=== PATIENT | female | born 1940 | race African-American/Black ===

== ENCOUNTER 2017-09-14 06:13 | Day surgery (SDC) | payer OTHER, BC ==
[2017-09-11 09:02] VITALS: BMI 31.0
[~2017-09-14 06:13] MED LIST: TOBRA 0.3%/DEXAMETH 0.1% OPHTHALMIC SUSP 2.5 ML BTL TP ONE
[2017-09-14 06:36] VITALS: TEMP 97.3
[2017-09-14] MEDS: CYCLOPENTOLATE HCL 1% OPHTH SOLN 2 ML BOTTLE ONE ×3 (06:54→07:13)
[2017-09-14] MEDS: PHENYLEPHRINE 2.5% OPHTH SOLN 15 ML BOTTLE ONE ×3 (06:55→07:14)
[2017-09-14] MEDS: FLURBIPROFEN 0.03% OPHTH SOLN 2.5 ML BOTTLE ONE ×3 (06:55→07:13)
[2017-09-14] MEDS: TROPICAMIDE 1% OPHTH SOLN 15 ML BOTTLE ONE ×3 (06:55→07:14)
[2017-09-14] MEDS: MOXIFLOXACIN HCL 0.5% OPHTHALMIC 3 ML BOTTLE ONE ×3 (06:55→07:13)
[2017-09-14] MEDS ORDERED: PHENYLEPHRINE/KETOROLAC 4 ML VIAL IO ONE ×2 (07:30→08:49)
[2017-09-14] MEDS ORDERED: BSS (NA/CA/MG/K) BALANCED SALT SOLUTION OPHTH SOLN 15 ML BOTTLE ONE (07:38)
[2017-09-14] MEDS ORDERED: LIDOCAINE HCL/PF 1% SDV 5ML VIAL ONE (07:38)
[2017-09-14] MEDS ORDERED: TETRACAINE 0.5% OPHTH SOLN 2 ML BOTTLE ONE (07:38)
[2017-09-14] MEDS ORDERED: TOBRA 0.3%/DEXAMETH 0.1% OPHTHALMIC SUSP 2.5 ML BTL ONE (07:38)
[2017-09-14] MEDS ORDERED: POVIDONE-IODINE 5% OPHTHALMIC PREP 30 ML SOLUTION ONE (07:39)
[2017-09-14] MEDS ORDERED: MIDAZOLAM HCL 2 MG/2 ML SINGLE DOSE VIAL ONE (08:09)
[2017-09-14] MEDS ORDERED: TETRACAINE 0.5% OPHTH SOLN 2 ML BOTTLE OD ONE (08:22)
[2017-09-14] MEDS ORDERED: POVIDONE-IODINE 5% OPHTHALMIC PREP 30 ML SOLUTION OD ONE (08:27)
[2017-09-14] MEDS ORDERED: BSS (NA/CA/MG/K) BALANCED SALT SOLUTION OPHTH SOLN 15 ML BOTTLE OD ONE (08:36)
[2017-09-14] MEDS ORDERED: LIDOCAINE HCL 1% PRESERVATIVE FREE - 30ML VIAL IO ONE (08:36)
[2017-09-14] MEDS ORDERED: CHONDROITIN SU A/HYALUR SOD 1 KIT IO ONE (08:36)
[2017-09-14] MEDS ORDERED: TOBRA 0.3%/DEXAMETH 0.1% OPHTHALMIC SUSP 2.5 ML BTL TP ONE (09:00)
[2017-09-14 11:21] VITALS: BP 136/74; PULSE 58
--- NOTE | 2017-09-14 18:57 | OP ---
DATE OF OPERATION: 09/14/2017 SPECIALIST: Ida Lopez MD ANESTHESIA: Local. PROCEDURE: Phacoemulsification of cataract, right eye, with in-bag placement of SN60WF 22.5 diopter using . DIAGNOSIS: Cataract, right eye. POSTOPERATIVE DIAGNOSIS: Cataract, right eye. DESCRIPTION OF PROCEDURE: Patient was brought in the operating room, and the right eye was prepped and draped in the usual sterile fashion for ophthalmic surgery after placing tetracaine eye drops. The microscope was swung into position. A 2.75 keratome was used to enter the anterior chamber at approximately 10 o'clock position. Filling the anterior chamber with 0.5 mL of preservative-free lidocaine and viscoelastic with an accessory port made at approximately 2 o'clock position. The cystotome and Utrata forceps were used to make a continuous circular capsulorrhexis. Phacoemulsification was carried out in a [id number] technique after using IA to perform hydrodissection and hydrodelineation of the lens nucleus which was then rotated freely. IA was used to remove residual cortical material from the capsular bag which was then found to be intact, and into which was injected SN60WF 22.5-diopter IOL. IA was used to remove residual viscoelastic from the capsular bag and anterior chamber. BSS was used to hydrate the corneal lip wounds which were then found to be watertight. A contact lens soaked in TobraDex solution for approximately 10 minutes was then draped in the cornea. The eye was patched and shielded. The patient was transferred to recovery room in a stable condition, having tolerated the procedure well. Chanell [id number]
== END 2017-09-14 11:05 | disposition home or self-care (01) ==
LOC: JASU-SURG 06:13
PROVIDERS: ATTEND Ophthalmology
PROC: 08RJ3JZ Replacement of Right Lens with Synthetic Substitute, Percutaneous Approach (ICD-10-PCS; principal; 2017-09-14 08:00)
DX: H26.9 Unspecified cataract (principal)
CPT/HCPCS: 82962; C9447

== ENCOUNTER 2017-12-28 06:46 | Day surgery (SDC) | payer OTHER, BC ==
[2017-12-24 18:22] VITALS: BMI 31.9
[~2017-12-28 06:46] MED LIST changes: +BSS (NA/CA/MG/K) BALANCED SALT SOLUTION OPHTH SOLN 15 ML BOTTLE IO ONE; +CHONDROITIN SU A/HYALUR SOD 1 KIT IO ONE; +LIDOCAINE HCL 1% PRESERVATIVE FREE - 30ML VIAL IO ONE; +POVIDONE-IODINE 5% OPHTHALMIC PREP 30 ML SOLUTION OS ONE; +TETRACAINE 0.5% OPHTH SOLN 2 ML BOTTLE TP ONE; +TOBRA 0.3%/DEXAMETH 0.1% OPHTHALMIC SUSP 2.5 ML BTL OP ONE; -TOBRA 0.3%/DEXAMETH 0.1% OPHTHALMIC SUSP 2.5 ML BTL TP ONE
[2017-12-28 07:28] VITALS: TEMP 97.9
[2017-12-28] MEDS ORDERED: TOBRA 0.3%/DEXAMETH 0.1% OPHTHALMIC SUSP 2.5 ML BTL ONE (07:36)
[2017-12-28] MEDS ORDERED: LIDOCAINE HCL/PF 1% SDV 5ML VIAL ONE (07:37)
[2017-12-28] MEDS ORDERED: TETRACAINE 0.5% OPHTH SOLN 2 ML BOTTLE ONE (07:37)
[2017-12-28] MEDS ORDERED: BSS (NA/CA/MG/K) BALANCED SALT SOLUTION OPHTH SOLN 15 ML BOTTLE ONE (07:37)
[2017-12-28] MEDS ORDERED: POVIDONE-IODINE 5% OPHTHALMIC PREP 30 ML SOLUTION ONE (07:37)
[2017-12-28] MEDS ORDERED: EPINEPHrine/PF 1 MG/1 ML (1:1,000) AMPULE ONE (07:43)
[2017-12-28] MEDS ORDERED: CHONDROITIN SU A/HYALUR SOD 1 KIT ONE (07:43)
[2017-12-28] MEDS: PHENYLEPHRINE 2.5% OPHTH SOLN 15 ML BOTTLE ONE ×3 (07:50→08:13)
[2017-12-28] MEDS: MOXIFLOXACIN HCL 0.5% OPHTHALMIC 3 ML BOTTLE ONE ×3 (07:50→08:13)
[2017-12-28] MEDS: FLURBIPROFEN 0.03% OPHTH SOLN 2.5 ML BOTTLE ONE ×3 (07:50→08:13)
[2017-12-28] MEDS: CYCLOPENTOLATE HCL 1% OPHTH SOLN 2 ML BOTTLE ONE ×3 (07:50→08:13)
[2017-12-28] MEDS: TROPICAMIDE 1% OPHTH SOLN 15 ML BOTTLE ONE ×3 (07:50→08:13)
[2017-12-28] MEDS ORDERED: MIDAZOLAM HCL 2 MG/2 ML SINGLE DOSE VIAL ONE (08:57)
[2017-12-28] MEDS ORDERED: TETRACAINE 0.5% OPHTH SOLN 2 ML BOTTLE TP ONE (09:35)
[2017-12-28] MEDS ORDERED: POVIDONE-IODINE 5% OPHTHALMIC PREP 30 ML SOLUTION OS ONE (09:50)
[2017-12-28] MEDS ORDERED: BSS (NA/CA/MG/K) BALANCED SALT SOLUTION OPHTH SOLN 15 ML BOTTLE IO ONE (09:54)
[2017-12-28] MEDS ORDERED: CYCLOPENTOLATE HCL 1% OPHTH SOLN 2 ML BOTTLE OS ONE (09:58)
[2017-12-28] MEDS ORDERED: PHENYLEPHRINE 2.5% OPHTH SOLN 15 ML BOTTLE OS ONE (09:58)
[2017-12-28] MEDS ORDERED: TROPICAMIDE 1% OPHTH SOLN 15 ML BOTTLE OS ONE (09:58)
[2017-12-28] MEDS ORDERED: LIDOCAINE HCL 1% PRESERVATIVE FREE - 30ML VIAL IO ONE (10:03)
[2017-12-28] MEDS ORDERED: CHONDROITIN SU A/HYALUR SOD 1 KIT IO ONE (10:05)
[2017-12-28] MEDS ORDERED: TOBRA 0.3%/DEXAMETH 0.1% OPHTHALMIC SUSP 2.5 ML BTL OP ONE (10:29)
[2017-12-28 11:25] VITALS: BP 129/75; PULSE 68
--- NOTE | 2017-12-28 13:47 | OP ---
DATE OF OPERATION: 12/28/2017 SURGEON: Vance Hendrickson MD PREOPERATIVE DIAGNOSIS: Cataract, left eye. POSTOPERATIVE DIAGNOSIS: Cataract, left eye. PROCEDURE: Phacoemulsification of cataract left eye with in bag placement of SN60WF in a myotic pupil. ANESTHESIA: Local. DESCRIPTION OF PROCEDURE: The patient was brought to the operating room, and the left eye was prepped and draped in the usual sterile fashion for ophthalmic surgery after placing tetracaine eye drops. The microscope was swung into position, and a 2.75 keratome was used to enter the anterior chamber at approximately 2 o'clock position with an accessory port made at approximately the 4 o'clock position. The pupil was very myotic; hence, the pledget was placed on the conjunctival sac. Viscoat dilation was also performed after placing 0.5 mL of lidocaine preservative free in the anterior chamber. Viscoelastic was filled in the anterior chamber, and cystotome and Utrata forceps were used to make a continuous circular capsulorrhexis. The lens was then hyrodissected and hydrodelineated using BSS. The nucleus was rotated freely. Phacoemulsification was carried out in a ktpryu-etf-nixltwo technique. The capsular bag was found to be intact after IOL was used to remove the residual cortical material from the capsular bag, which was placed 22 diopter SN60WF. The IOL was found to be in situation, and viscoelastic was aspirated. The corneal lip wounds were then hydrated, and the wound was found to be watertight. The contact lens soaked in Tobradex solution for approximately 10 minutes was then draped on the eye. The eye was patched and shielded. The patient was transferred to the recovery room in a stable condition having tolerated the procedure well. VANCE HENDRICKSON M.D. [id number]
== END 2017-12-28 11:25 | disposition home or self-care (01) ==
LOC: JASU-SURG 06:46
PROVIDERS: ATTEND Ophthalmology
PROC: 08RK3JZ Replacement of Left Lens with Synthetic Substitute, Percutaneous Approach (ICD-10-PCS; principal; 2017-12-28 09:00)
DX: H26.9 Unspecified cataract (principal)
CPT/HCPCS: 82962

== ENCOUNTER 2020-04-19 21:15 | Emergency (ER) | payer OTHER, BC ==
[2020-04-19 22:00] VITALS: BP 175/78; PULSE 97; TEMP 98.6; BMI 31.6
--- NOTE | 2020-04-19 22:27 | PDOC ---
History of Present Illness - General Chief Complaint: Sore Throat Stated Complaint: SORE THROAT Time Seen by Provider: 04/19/20 22:18 History Source: Patient Exam Limitations: No Limitations - History of Present Illness Initial Comments: 04/19/20 22:28 80-year-old female past medical history hypertension diabetes left leg stent presented to the ED with sore throat. Patient states she was eating dinner felt a choking sensation was able to swallow and then experience sore throat afterwards. Patient denies foreign body sensation in throat. Patient came to the ED because she was concerned about the episode. Patient is currently asymptomatic in the ED and was able to tolerate p.o. fluids were given a glass of water. Patient is also complaining of left arm swelling in the AC fossa for 2 days with mild pain on ROM. Pt otherwise denies: fevers, chills, syncope, lightheadedness, dizziness, headaches, neck pain, chest pain, shortness of breath, palpitations, back pain, abdominal pain, nausea, vomiting, diarrhea, constipation. Past History - Medical History Allergies/Adverse Reactions: Allergies Allergy/AdvReac Type Severity Reaction Status Date / Time No Known Drug Allergies Allergy Verified 12/28/17 07:33 Home Medications: Ambulatory Orders Alprazolam [Xanax] 0.5 mg PO PRN PRN 09/11/17 Amlodipine Besylate 10 mg PO DAILY 09/11/17 Atorvastatin Ca [Lipitor] 10 mg PO HS 09/11/17 Gabapentin [Gralise] 300 mg PO HS 09/11/17 Glipizide [Glipizide ER] 5 mg PO DAILY 09/11/17 Metoprolol Succinate 50 mg PO DAILY 09/11/17 Ramipril 10 mg PO DAILY 09/11/17 Aspirin Coated [Ecotrin -] 81 mg PO DAILY 12/28/17 Anemia: No Asthma: No Cancer: No Cardiac Disorders: No CVA: No COPD: No CHF: No Dementia: No Diabetes: Yes GI Disorders: No Disorders: No HTN: Yes Hypercholesterolemia: No Liver Disease: No Seizures: No Thyroid Disease: No - Surgical History Abdominal Surgery: No Appendectomy: No Cardiac Surgery: No Cholecystectomy: No Lung Surgery: No Neurologic Surgery: No Orthopedic Surgery: No - Psycho-Social/Smoking History Smoking History: Never smoked Have you smoked in the past 12 months: No If you are a former smoker, when did you quit?: 2010 - Substance Abuse Hx (Audit-C & DAST Scrn) How often the patient has a drink containing alcohol: Never Score: In Men: 4 or > Positive; In Women: 3 or > Positive: 0 Screen Result (Pos requires Nsg. Audit-10AR): Negative In the last yr the pt used illegal drug/Rx for NonMed reason: No Score: Yes response is considered Positive: 0 Screen Result (Positive result requires Nsg. DAST-10): Negative *Physical Exam - Vital Signs Last Vital Signs Temp Pulse Resp BP Pulse Ox 98.6 F 97 H 19 175/78 H 97 04/19/20 21:48 04/19/20 21:48 04/19/20 21:48 04/19/20 21:48 04/19/20 21:48 - Physical Exam 04/19/20 22:29 Gen: AAOx 3, no acute distress, comfortable, no signs of respiratory distress HENT: atraumatic, normocephalic with no laceration or contusion. Nasal mucosa without erythema. Oropharynx without erythema or exudates. Mucous membranes moist. EYES: PERRL, EOM intact, conjunctiva pink NECK: supple; trachea midline; no JVD, no lymphadenopathy, or thyromegaly CV: RRR no murmurs, gallops, or rubs. CHEST: CTA b/l no wheezing, rales or rhonchi ABD: +BS/ND. no TTP; soft, no rebound, no guarding EXTREMITY: no cyanosis or erythema. 2+ dorsalis pedis, posterior tibial, and radial pulse. No pedal edema; no calf swelling or tenderness SKIN: no rash, warm and dry, no diaphoresis HEME: no purpura or ecchymosis NEURO: normal speech, CN II-XII intact, sensation intact, normal gait, no cerebellar deficits MS: 5/5 strength in all extremities, FROM intact in all extremities. Right upper extremity: Mild swelling to the medial aspect of the forearm at the area of the AC fossa no erythema or increased warmth from 2+ radial pulse sensation intact less than 2-second cap refill Medical Decision Making - Medical Decision Making 04/19/20 22:32 80-year-old female complaining of sore throat left arm swelling Vital signs stable except for asymptomatic hypertension No acute intervention warranted in the ED for sore throat complaint Had a shared decision-making conversation with patient I explained that I would like to get an upper extremity arm Doppler study to rule out DVT in the upper extremity. I explained to the patient the risk versus benefits. Patient states that due to it being 10:30 at night she rather follow-up with her PCP tomorrow to have it done rather than wait for the results here tonight. I explained the risks of this to the patient patient agrees and understands and will follow up with her PCP tomorrow Repeat HR 80 Pt appears well and is safe and stable for discharge with strict return precautions including signs and symptoms requring immediate return to the ED Supportive care instructions explained and given to pt. Reasons to return emergently to ER explained and given. Importance of follow up with PMD and other specialists as indicated stressed to pt. Pt verbalized understanding of instructions. Pt to follow up with PMD in 2 days. 04/19/20 22:37 Discharge - Discharge Information Problems reviewed: Yes Clinical Impression/Diagnosis: Sore throat and laryngitis Condition: Stable Disposition: HOME - Follow up/Referral Referrals: Kaleigh Galvin MD [Primary Care Provider] - - Patient Discharge Instructions Patient Printed Discharge Instructions: DI for Viral Pharyngitis Additional Instructions: PLEASE FOLLOW UP WITH YOUR DOCTOR TOMORROW - Post Discharge Activity
== END 2020-04-19 22:43 | disposition home or self-care (01) ==
LOC: JER 21:15 → JERFT 21:15
DX: J02.9 Acute pharyngitis, unspecified (principal)
CPT/HCPCS: 99282-25

== ENCOUNTER 2020-05-20 09:58 | Emergency (ER) | payer OTHER, BC ==
[2020-05-20 10:03] VITALS: TEMP 97; BMI 31.6
--- OUTSIDE RECORDS SUMMARY | 2020-05-20 10:11 | XMS ---
:1940 Author Organization [facility] Support Name Relationship Address Phone RE Unavailable Unavailable Unavailable STEPHANIE BURLESON [address] [place] [address] SARAH BETH Spouse [address] [phone] [place] [address] Re-disclosure Warning The records that you are about to access may contain information from federally- assisted alcohol or drug abuse programs. If such information is present, then the following federally mandated warning applies: This information has been disclosed to you from records protected by federal confidentiality rules (42 CFR part 2). The federal rules prohibit you from making any further disclosure of this information unless further disclosure is expressly permitted by the written consent of the person to whom it pertains or as otherwise permitted by 42 CFR part 2. A general authorization for the release of medical or other information is NOT sufficient for this purpose. The Federal rules restrict any use of the information to criminally investigate or prosecute any alcohol or drug abuse patient.The records that you are about to access may contain highly sensitive health information, the redisclosure of which is protected by Article 27-F of the [facility] Public Health law. If you continue you may haveaccess to information: Regarding HIV / AIDS; Provided by facilities licensed or operated by the [facility] Office of Mental Health; or Provided by the [facility] Office for People With Developmental Disabilities. If such information is present, then the following [facility] mandated warning applies: This information has been disclosed to you from confidential records which are protected by state law. State law prohibits you from making any further disclosure of this information without the specific written consent of the person to whom it pertains, or as otherwise permitted by law. Any unauthorized further disclosure in violation of state law may result in a fine or half-way sentence or both. A general authorization for the release of medical or other information is NOT sufficient authorization for further disclosure. Insurance Providers Payer name Policy type Policy ID Covered Covered green party's Policy P mickey / Coverage green party ID relationship to Marlow Inf ormation type marlow MEDICARE [id number] SP [id number] [facility] [id number] MEDICARE [id number]
--- NOTE | 2020-05-20 10:15 | PDOC ---
History of Present Illness - History of Present Illness Initial Comments: 05/20/20 10:38 80 F with HTN, NIDDM, left leg stent presented here for acute headache. Headache was sharp, and throbbing in nature, located in right frontal side radiate to the right occipital. It woke her up from sleep, and associated with right tinnitus. Yesterday, patient had pizza at night. Shortly after, she had one episode of NBNB emesis. Denied Diarrhea, chest pain, abdominal pain, change of vision, ataxia, trauma, falling. Her PCP was called, told her to come into the ED for COVID testing. PMHX: as in HPI PSHX: see below Meds: home meds , on aspirinr 81 mg. Allergies: none Tob:none Etoh: none Rec drugs:none PCP: danuta GONZALEZ GENERAL/CONSTITUTIONAL: No fever or chills. No weakness. HEAD, EYES, EARS, NOSE AND THROAT: No change in vision. No ear pain or discharge. No sore throat. CARDIOVASCULAR: No chest pain or shortness of breath RESPIRATORY: No cough, wheezing, or hemoptysis. GASTROINTESTINAL: No nausea, vomiting, diarrhea or constipation. GENITOURINARY: No dysuria, frequency, or change in urination. MUSCULOSKELETAL: No joint or muscle swelling or pain. No neck or back pain. SKIN: No rash NEUROLOGIC: + headache, no vertigo, loss of consciousness, or change in strength/sensation. ENDOCRINE: No increased thirst. No abnormal weight change HEMATOLOGIC/LYMPHATIC: No anemia, easy bleeding, or history of blood clots. ALLERGIC/IMMUNOLOGIC: No hives or skin allergy. PE HTN 180/100s. GENERAL: Awake, alert, and fully oriented, in no acute distress HEAD: No signs of trauma, normocephalic, atraumatic EYES: PERRLA, EOMI, sclera anicteric, conjunctiva clear ENT: Auricles normal inspection, hearing grossly normal, nares patent, oropharynx clear without exudates. Moist mucosa NECK: Normal ROM, supple, no lymphadenopathy, JVD, or masses LUNGS: No distress, speaks full sentences, clear to auscultation bilaterally HEART: Regular rate and rhythm, normal S1 and S2, no murmurs, rubs or gallops, peripheral pulses normal and equal bilaterally. ABDOMEN: Soft, nontender, normoactive bowel sounds. No guarding, no rebound. No masses EXTREMITIES : Normal inspection, Normal range of motion, no edema. No clubbing or cyanosis. NEUROLOGICAL: Cranial nerves II through XII grossly intact. Normal speech, normal gait, no focal sensorimotor deficits SKIN: Warm, Dry, normal turgor, no rashes or lesions noted <Andre Basilio - Last Filed: 05/20/20 11:45> <Libertad Wyatt - Last Filed: 05/20/20 12:02> - General Chief Complaint: Headache Stated Complaint: HEADACHE Time Seen by Provider: 05/20/20 10:13 Past History - Medical History Anemia: No Asthma: No Cancer: No Cardiac Disorders: No CVA: No COPD: No CHF: No Dementia: No Diabetes: Yes GI Disorders: No Disorders: No HTN: Yes Hypercholesterolemia: No Liver Disease: No Seizures: No Thyroid Disease: No - Surgical History Abdominal Surgery: No Appendectomy: No Cardiac Surgery: No Cholecystectomy: No Lung Surgery: No Neurologic Surgery: No Orthopedic Surgery: No - Psycho-Social/Smoking History Smoking History: Never smoked Have you smoked in the past 12 months: No If you are a former smoker, when did you quit?: 2010 <Andre Basilio - Last Filed: 05/20/20 11:45> <Libertad Wyatt - Last Filed: 05/20/20 12:02> - Medical History Allergies/Adverse Reactions: Allergies Allergy/AdvReac Type Severity Reaction Status Date / Time No Known Drug Allergies Allergy Verified 05/20/20 10:03 Home Medications: Ambulatory Orders Alprazolam [Xanax] 0.5 mg PO PRN PRN 09/11/17 Amlodipine Besylate 10 mg PO DAILY 09/11/17 Atorvastatin Ca [Lipitor] 10 mg PO HS 09/11/17 Gabapentin [Gralise] 300 mg PO HS 09/11/17 Glipizide [Glipizide ER] 5 mg PO DAILY 09/11/17 Metoprolol Succinate 50 mg PO DAILY 09/11/17 Ramipril 10 mg PO DAILY 09/11/17 Aspirin Coated [Ecotrin -] 81 mg PO DAILY 12/28/17 *Physical Exam - Vital Signs Last Vital Signs Temp Pulse Resp BP Pulse Ox 97 F L 75 18 189/78 H 97 05/20/20 09:59 05/20/20 09:59 05/20/20 09:59 05/20/20 09:59 05/20/20 09:59 <Sundar Basilioeu - Last Filed: 05/20/20 11:45> - Vital Signs Last Vital Signs Temp Pulse Resp BP Pulse Ox 97 F L 75 18 189/78 H 97 05/20/20 09:59 05/20/20 09:59 05/20/20 09:59 05/20/20 09:59 05/20/20 09:59 <Libertad Wyatt - Last Filed: 05/20/20 12:02> Discharge - Discharge Information Problems reviewed: Yes <PrafulAndre - Last Filed: 05/20/20 11:45> <Libertad Wyatt - Last Filed: 05/20/20 12:02> - Discharge Information Condition: Good Disposition: HOME - Follow up/Referral Referrals: Kaleigh Galvin MD [Primary Care Provider] - - Patient Discharge Instructions Additional Instructions: Discharge Instructions: You were seen in the ED for headache. You had a CT scan that did not show any concerning findings. Your headache will most likely resolve without any special medication. You had a COVID test and will be called when the results are available. Home Care and Follow Up: - You may use over the counter medications as needed for pain at home. 650- 1000mg acetaminophen (Tylenol) or 600mg ibuprofen (Motrin or Advil) can be used every 6-8 hours. If needed for continued pain, these medications may be alternated every 3-4 hours. For example, if you take ibuprofen at 9am, you may take acetaminophen at noon, ibuprofen at 3pm, etc. - It is strongly recommended that you take ibuprofen with food to help prevent stomach irritation. - If you are not feeling better in a few days, call your regular doctor to follow up - Seek immediate care if you have worsening headaches, pain that does not improve with medication, any neurological symptoms (one-sided weakness or numbness, facial droop, changes in your speech), you are confused or unusually sleepy, you have multiple episodes of vomiting per hour for at least 2 hours, or you have any other medical emergency. - Post Discharge Activity
--- NOTE | 2020-05-20 11:19 | PDOC ---
Documentation entered by Fercho Osorio SCRIBE, acting as scribe for Michael Maher MD. Michael Maher MD: This documentation has been prepared by the scribe, Fercho Oosrio SCRIBE, under my direction and personally reviewed by me in its entirety. I confirm that the documentation accurately reflects all work, treatment, procedures, and medical decision making performed by me. Attending Attestation - Resident Resident Name: Andre Basilio - ED Attending Attestation I have performed the following: I have examined & evaluated the patient, The case was reviewed & discussed with the resident, I agree w/resident's findings & plan, Exceptions are as noted - HPI HPI: 05/20/20 10:50 The patient is an 80 year old female with a significant past medical history of DM and HTN who presents to the emergency department for evaluation of a headache that began five hours ago. The patient reports 3 brief shocks of acute right sided pain like lightning that lasts for a second on the R scalp. She endorses the first episode woke her from sleep five hours ago, and the first two episodes were severe while the third was mild. Th eheadache has since resolved and The patient is currently asymptomatic. She notes an episode of nausea followed by nbnb vomiting last night after eating a pizza, with resolution of her nausea. She was feeling normal whenshe went to bed without any associated headache, f/c, diarrhea. She notes calling her PCP who told her to come to the ED for a evaluation and possibly a COVID-19 swab. The patient denies chest/abdominal/back pain, cough, and shortness of breath. Denies fever, chills, nausea, vomiting, and/or any GI symptoms. Denies any symptoms. Denies any other symptoms. Allergies: NKDA Social Hx: None reported Surgical Hx: left leg stent PCP: Dr. Kaleigh Galvin - Physicial Exam PE: 05/20/20 10:42 GENERAL: The patient is awake, alert, and fully oriented, Nontoxic - in no acute distress. HEAD: Normocephalic, atraumatic. EYES: extraocular movements intact, sclera anicteric, conjunctiva clear. ENT: Normal voice, Moist mucous membranes. NECK: Normal range of motion, supple without lymphadenopathy, JVD, or masses. LUNGS: Breath sounds equal, clear to auscultation bilaterally. No wheezes, no crackles, no rales. HEART: Regular rate and rhythm, normal S1 and S2 without murmur, rub or gallop. ABDOMEN: Soft, nontender, normoactive bowel sounds. No guarding, no rebound. No masses. EXTREMITIES: Normal range of motion, no edema. No clubbing or cyanosis. No cords, erythema, or tenderness. NEUROLOGICAL: No facial asymmetry, Normal speech, normal gait. PSYCH: Normal mood, normal affect. SKIN: Warm, Dry, normal turgor, no rashes or lesions noted. - Medical Decision Making 05/20/20 11:18 low suspicion of AAH based on brevity of episode and current asymptmatic, however based on severity/sudden onset of it will obtain a CT neuro intact pt declines pain meds/tylenol will reasess, anticipate dc with outpaint fu 05/20/20 11:19 05/20/20 12:[address] negative pt feelnig asymptomatic will dc with outpt fu return precautions were discussed Discharge - Discharge Information Problems reviewed: Yes Clinical Impression/Diagnosis: Headache Qualifiers: Headache type: unspecified Headache chronicity pattern: episodic headache Intractability: not intractable Qualified Code(s): R51.9 - Headache, unspecified Condition: Good Disposition: HOME - Admission No - Follow up/Referral Referrals: Kaleigh Galvin MD [Primary Care Provider] - - Patient Discharge Instructions Patient Printed Discharge Instructions: DI for Headache Additional Instructions: Discharge Instructions: You were seen in the ED for headache. You had a CT scan that did not show any concerning findings. Your headache will most likely resolve without any special medication. You had a COVID test and will be called when the results are available. Home Care and Follow Up: - You may use over the counter medications as needed for pain at home. 650- 1000mg acetaminophen (Tylenol) or 600mg ibuprofen (Motrin or Advil) can be used every 6-8 hours. If needed for continued pain, these medications may be alternated every 3-4 hours. For example, if you take ibuprofen at 9am, you may take acetaminophen at noon, ibuprofen at 3pm, etc. - It is strongly recommended that you take ibuprofen with food to help prevent stomach irritation. - If you are not feeling better in a few days, call your regular doctor to follow up - Seek immediate care if you have worsening headaches, pain that does not improve with medication, any neurological symptoms (one-sided weakness or numbness, facial droop, changes in your speech), you are confused or unusually sleepy, you have multiple episodes of vomiting per hour for at least 2 hours, or you have any other medical emergency. - Post Discharge Activity
[2020-05-20 12:16] VITALS: BP 174/76; PULSE 73
== END 2020-05-20 12:16 | disposition home or self-care (01) ==
LOC: JER 09:58
DX: R51 Headache (principal)
CPT/HCPCS: 70450-TC; 99284-25; U0003

== ENCOUNTER 2022-02-16 08:53 | Observation (INO) | payer OTHER, BC ==
[2022-02-16 09:01] VITALS: BMI 31.6
[2022-02-16 10:47] LABS: BASO % 0.8 % (0-2.0); EOS % 5.3 % (0-4.5); HEMATOCRIT 38.5 % (32.4-45.2); HEMOGLOBIN 12.9 GM/dL (10.7-15.3); LYMPH % 32.3 % (8-40); MCH 31.2 pg (25.7-33.7); MCHC 33.5 g/dl (32.0-36.0); MEAN PLT VOLUME 7.4 fl (7.5-11.1); MONO % 6.3 % (3.8-10.2); NEUT % 55.3 % (42.8-82.8); PLATELET COUNT 338 10^3/uL (134-434); RBC 4.14 M/mm3 (3.60-5.2); RDW 14.1 % (11.6-15.6); WHITE BLOOD COUNT 7.2 K/mm3 (4.0-10.0)
[2022-02-16 11:02] LABS: ALBUMIN 3.6 g/dl (3.4-5.0); CALCIUM 10.7 mg/dL (8.5-10.1)
[2022-02-16 11:03] LABS: BLOOD UREA NITROGEN 21.6 mg/dL (7-18)
[2022-02-16 11:07] LABS: BILIRUBIN,TOTAL 0.5 mg/dL (0.2-1); TOT PROT 7.6 g/dl (6.4-8.2)
[2022-02-16 11:38] LABS: URINE APPEARANCE CLEAR; URINE BILIRUBIN NEGATIVE (NEGATIVE); URINE COLOR YELLOW; URINE GLUCOSE (UA) NEGATIVE (NEGATIVE); URINE KETONE NEGATIVE (NEGATIVE); URINE LEUK ESTERASE NEGATIVE (NEGATIVE); URINE NITRITE NEGATIVE (NEGATIVE); URINE PROTEIN NEGATIVE (NEGATIVE); URINE UROBILINOGEN 0.2 mg/dL (0.2-1.0)
[2022-02-16] MEDS ORDERED: OCTREOTIDE ACETATE 50 MCG/1 ML - 1 ML VIAL SQ ONE (12:59)
[2022-02-16] MEDS: DEXTROSE 10%-WATER - 1,000 ML IV SCH (17:15)
[2022-02-16] MEDS ORDERED: ATORVASTATIN CA 10 MG TABLET (FP) ONE (21:40)
[2022-02-16] MEDS: ATORVASTATIN CA 10 MG TABLET (FP) PO SCH (22:40)
[2022-02-17] MEDS: DEXTROSE 10%-WATER - 1,000 ML IV SCH (00:13)
[2022-02-17] MEDS ORDERED: ALPRAZolam 1 MG TABLET PO PRN (08:18)
[2022-02-17] MEDS: amLODIPine BESYLATE 10 MG TABLET (FP) PO SCH (09:38)
[2022-02-17] MEDS: FAMOTIDINE 20 MG/50 ML IVPB 20 MG/50 ML MG IVPB SCH ×2 (09:42→22:14)
[2022-02-17] MEDS: ASPIRIN COATED 81 MG TABLET.EC PO SCH (09:42)
[2022-02-17] MEDS: D5-1/2NS+10 MEQ KCL - 10 MEQ/1,000 ML INFUS.BAG IV SCH ×2 (09:44→20:44)
[2022-02-17 10:25] LABS: BASO % 0.6 % (0-2.0); EOS % 1.5 % (0-4.5); HEMATOCRIT 41.1 % (32.4-45.2); HEMOGLOBIN 13.9 GM/dL (10.7-15.3); LYMPH % 21.7 % (8-40); MCH 31.2 pg (25.7-33.7); MCHC 33.8 g/dl (32.0-36.0); MEAN CELL VOLUME 92.3 fl (80-96); MEAN PLT VOLUME 7.7 fl (7.5-11.1); MONO % 5.3 % (3.8-10.2); NEUT % 70.9 % (42.8-82.8); PLATELET COUNT 335 10^3/uL (134-434); RBC 4.45 M/mm3 (3.60-5.2); RDW 14.4 % (11.6-15.6); WHITE BLOOD COUNT 8.8 K/mm3 (4.0-10.0)
[2022-02-17 10:43] LABS: CALCIUM 10.1 mg/dL (8.5-10.1)
[2022-02-17 10:44] LABS: BLOOD UREA NITROGEN 13.8 mg/dL (7-18)
[2022-02-17] MEDS: AMOX TR/POT CLAV 875MG/125MG TABLETS (FP) PO SCH (17:49)
[2022-02-17] MEDS: ATORVASTATIN CA 10 MG TABLET (FP) PO SCH (22:14)
[2022-02-18] MEDS: ASPIRIN COATED 81 MG TABLET.EC PO SCH (09:08)
[2022-02-18] MEDS: amLODIPine BESYLATE 10 MG TABLET (FP) PO SCH (09:08)
[2022-02-18] MEDS: AMOX TR/POT CLAV 875MG/125MG TABLETS (FP) PO SCH (09:08)
[2022-02-18] MEDS: D5-1/2NS+10 MEQ KCL - 10 MEQ/1,000 ML INFUS.BAG IV SCH (09:09)
[2022-02-18] MEDS: FAMOTIDINE 20 MG/50 ML IVPB 20 MG/50 ML MG IVPB SCH (09:09)
[2022-02-18] MEDS ORDERED: FAMOTIDINE 20 MG TABLET PO SCH (10:00)
[2022-02-18] MEDS ORDERED: QUEtiapine FUMARATE 25 MG TABLET PO SCH (11:00)
[2022-02-18] MEDS ORDERED: QUEtiapine FUMARATE 25 MG TABLET PO PRN (12:24)
[2022-02-18 13:56] VITALS: BP 111/66; PULSE 91; TEMP 98.7
== END 2022-02-18 15:47 | disposition home or self-care (01) ==
LOC: JER 08:53 → JERBED 12:52 → J5S 23:13
PROVIDERS: ADMIT Internal Medicine; ATTEND Internal Medicine
PROC: 3E0337Z Introduction of Electrolytic and Water Balance Substance into Peripheral Vein, Percutaneous Approach (ICD-10-PCS; principal; 2022-02-16)
PROC: 3E033GC Introduction of Other Therapeutic Substance into Peripheral Vein, Percutaneous Approach (ICD-10-PCS; 2022-02-16)
DX: I11.9 Hypertensive heart disease without heart failure (principal); E78.5 Hyperlipidemia, unspecified; I25.10 Atherosclerotic heart disease of native coronary artery without angina pectoris; E11.649 Type 2 diabetes mellitus with hypoglycemia without coma; Z95.1 Presence of aortocoronary bypass graft; Z87.891 Personal history of nicotine dependence
CPT/HCPCS: 36415; 71045-TC-FY; 74177-TC; 80048; 80053; 81003; 82962; 83036; 83605; 83690; 84484; 85025; 87077; 87086; 93005; 93010; 96361; 96374; 96375; 97116-GP; 97162-GP; 99285-25; C9803-CS; G0378; Q9967; U0003; U0005

== ENCOUNTER 2023-08-22 19:44 | Inpatient (IN) | payer OTHER, BC ==
[2023-08-22 19:53] VITALS: BMI 27.0
[2023-08-22] MEDS ORDERED: SODIUM CHLORIDE 0.9% 500 ML INFUS.BAG IV ONE (20:58)
[2023-08-22 21:32] LABS: BASO % 0.2 % (0-2.0); HEMATOCRIT 38.8 % (32.4-45.2); HEMOGLOBIN 12.5 GM/dL (10.7-15.3); LYMPH % 7.5 % (8-40); MCH 30.7 pg (25.7-33.7); MCHC 32.2 g/dl (32.0-36.0); MEAN CELL VOLUME 95.3 fl (80-96); MEAN PLT VOLUME 8.1 fl (7.5-11.1); MONO % 3.8 % (3.8-10.2); NEUT % 88.5 % (42.8-82.8); PLATELET COUNT 298 10^3/uL (134-434); RBC 4.07 M/mm3 (3.60-5.2); RDW 18.4 % (11.6-15.6)
[2023-08-22 21:45] LABS: POTASSIUM 4.4 mmol/L (3.5-5.1)
[2023-08-22 21:47] LABS: CALCIUM 9.1 mg/dL (8.5-10.1)
[2023-08-22 21:48] LABS: ALBUMIN 3.6 g/dl (3.4-5.0); BLOOD UREA NITROGEN 20.9 mg/dL (7-18); MAGNESIUM 1.6 mg/dL (1.8-2.4)
[2023-08-22 21:51] LABS: CREATININE 1.7 mg/dL (0.55-1.3)
[2023-08-22 21:52] LABS: TOT PROT 7.6 g/dl (6.4-8.2)
[2023-08-22] MEDS ORDERED: MAGNESIUM SULFATE IN WATER 2 GM/50 ML IVPB IVPB ONE ×2 (22:01→22:08)
[2023-08-22] MEDS ORDERED: ACETAMINOPHEN 1000 MG/100 ML BAG IVPB PRN (23:10)
[2023-08-22] MEDS ORDERED: BENZONATATE 200 MG CAPSULE PO PRN (23:15)
[2023-08-22] MEDS ORDERED: BENZOCAINE/MENTHOL (CHLORASEPTIC ) LOZENGE MM PRN (23:15)
[2023-08-22] MEDS ORDERED: MELATONIN 5 MG TABLETS PO PRN (23:35)
[2023-08-22] MEDS ORDERED: REMDESIVIR 200 MG in SODIUM CHLORIDE 250 ML IVPB ONE (23:45)
[2023-08-23 00:31] LABS: BASO % 0.2 % (0-2.0); LYMPH % 10.4 % (8-40); MCH 30.6 pg (25.7-33.7); MCHC 32.4 g/dl (32.0-36.0); MEAN CELL VOLUME 94.2 fl (80-96); MONO % 8.7 % (3.8-10.2); NEUT % 80.7 % (42.8-82.8); PLATELET COUNT 325 10^3/uL (134-434); RBC 4.24 M/mm3 (3.60-5.2); RDW 18.8 % (11.6-15.6); WHITE BLOOD COUNT 8.9 K/mm3 (4.0-10.0)
[2023-08-23] MEDS: DEXTROSE 5%-0.45% SALINE 1,000 ML IV SCH ×2 (00:34→23:08)
[2023-08-23 00:46] LABS: ACTIVATED PTT 30.3 SECONDS (25.2-36.5); INR 1.2 (0.83-1.09); PROTHROMBIN TIME (PATIENT) 13.9 SEC (9.7-13.0)
[2023-08-23 00:51] LABS: POTASSIUM 4.6 mmol/L (3.5-5.1)
[2023-08-23 00:53] LABS: BLOOD UREA NITROGEN 21.7 mg/dL (7-18); CALCIUM 9.1 mg/dL (8.5-10.1); MAGNESIUM 2.4 mg/dL (1.8-2.4)
[2023-08-23 00:56] LABS: PHOSPHOROUS 3.4 mg/dL (2.5-4.9)
[2023-08-23 00:57] LABS: CREATININE 1.6 mg/dL (0.55-1.3)
[2023-08-23] MEDS ORDERED: ALBUTEROL SO4 2.5/IPRATROPIUM 0.5 INH SOL 3 ML VIAL.NEB. NEB PRN (05:46)
[2023-08-23] MEDS ORDERED: ALPRAZolam 0.25 MG TABLET PO PRN ×2 (06:24→15:02)
[2023-08-23] MEDS: INSULIN ASPART SLIDING SCALE (NOVOLOG) 1 VIAL SQ SCH ×4 (08:59→22:48)
[2023-08-23] MEDS: guaiFENesin 600 MG TABLET.ER (FP) PO SCH ×2 (10:00→23:08)
[2023-08-23] MEDS: predniSONE 20 MG TABLET (UD) PO SCH (10:00)
[2023-08-23] MEDS: ASPIRIN COATED 81 MG TABLET.EC PO SCH (10:00)
[2023-08-23] MEDS ORDERED: ALPRAZolam 0.25 MG TABLET ONE (11:04)
[2023-08-23] MEDS: HEPARIN NA (PORCINE) 5,000 UNITS/ML 1ML VIAL SQ SCH ×2 (14:28→23:10)
[2023-08-23] MEDS: REMDESIVIR 100 MG in SODIUM CHLORIDE 250 ML IVPB SCH (20:52)
[2023-08-23] MEDS ORDERED: ATORVASTATIN CA 10 MG TABLET (FP) PO SCH (22:00)
[2023-08-23] MEDS ORDERED: ROSUVASTATIN CA 20 MG TABLET ONE (22:49)
[2023-08-23] MEDS ORDERED: HEPARIN NA (PORCINE) 5,000 UNITS/ML 1ML VIAL ONE (22:49)
[2023-08-23] MEDS: ROSUVASTATIN CA 20 MG TABLET PO SCH (23:08)
[2023-08-23] MEDS ORDERED: ACETAMINOPHEN 325 MG TABLET (FP) PO PRN (23:10)
[2023-08-24] MEDS ORDERED: HEPARIN NA (PORCINE) 5,000 UNITS/ML 1ML VIAL ONE (06:41)
[2023-08-24] MEDS: HEPARIN NA (PORCINE) 5,000 UNITS/ML 1ML VIAL SQ SCH ×3 (06:50→22:53)
[2023-08-24 08:33] LABS: POTASSIUM 4.1 mmol/L (3.5-5.1)
[2023-08-24 08:37] LABS: BLOOD UREA NITROGEN 17.2 mg/dL (7-18); CALCIUM 8.7 mg/dL (8.5-10.1)
[2023-08-24] MEDS: INSULIN ASPART SLIDING SCALE (NOVOLOG) 1 VIAL SQ SCH ×4 (08:37→23:01)
[2023-08-24 08:40] LABS: CREATININE 1.2 mg/dL (0.55-1.3)
[2023-08-24] MEDS: ASPIRIN COATED 81 MG TABLET.EC PO SCH (10:33)
[2023-08-24] MEDS: predniSONE 20 MG TABLET (UD) PO SCH (10:33)
[2023-08-24] MEDS: guaiFENesin 600 MG TABLET.ER (FP) PO SCH ×2 (10:33→22:53)
[2023-08-24] MEDS: ROSUVASTATIN CA 20 MG TABLET PO SCH (22:53)
[2023-08-24] MEDS: REMDESIVIR 100 MG in SODIUM CHLORIDE 250 ML IVPB SCH (22:54)
[2023-08-24] MEDS: DEXTROSE 5%-0.45% SALINE 1,000 ML IV SCH (23:10)
[2023-08-25] MEDS: HEPARIN NA (PORCINE) 5,000 UNITS/ML 1ML VIAL SQ SCH ×2 (06:39→14:12)
[2023-08-25] MEDS: INSULIN ASPART SLIDING SCALE (NOVOLOG) 1 VIAL SQ SCH ×2 (06:40→12:00)
[2023-08-25] MEDS: guaiFENesin 600 MG TABLET.ER (FP) PO SCH (10:04)
[2023-08-25] MEDS: predniSONE 20 MG TABLET (UD) PO SCH (10:04)
[2023-08-25] MEDS: ASPIRIN COATED 81 MG TABLET.EC PO SCH (10:04)
[2023-08-25 10:23] VITALS: BP 127/92; PULSE 101; RESP 18; TEMP 98.2
== END 2023-08-25 15:21 | disposition home or self-care (01) | DRG 178 ==
LOC: JER 19:44 → JERBED 22:19 → J4S 08-24 22:08
PROVIDERS: ADMIT Internal Medicine; ATTEND Family Medicine
PROC: XW033E5 Introduction of Remdesivir Anti-infective into Peripheral Vein, Percutaneous Approach, New Technology Group 5 (ICD-10-PCS; principal; 2023-08-22)
DX: U07.1 COVID-19 (principal); N17.9 Acute kidney failure, unspecified; I25.10 Atherosclerotic heart disease of native coronary artery without angina pectoris; I10 Essential (primary) hypertension; E78.5 Hyperlipidemia, unspecified; E11.9 Type 2 diabetes mellitus without complications; Z95.1 Presence of aortocoronary bypass graft
CPT/HCPCS: 0241U-QW; 36415; 71046-TC-FY; 80048; 80053; 82728; 82962; 83615; 83735; 84100; 84484; 85025; 85610; 85651; 85730; 86140; 93005; 93010; 97116-GP; 97161-GP; 99291; J0248; J1644

== ENCOUNTER 2023-08-29 12:18 | Inpatient (IN) | payer OTHER, BC ==
[2023-08-29 13:57] LABS: BASO % 0.3 % (0-2.0); HEMATOCRIT 38.8 % (32.4-45.2); HEMOGLOBIN 12.4 GM/dL (10.7-15.3); LYMPH % 18.2 % (8-40); MCH 30.3 pg (25.7-33.7); MEAN CELL VOLUME 94.5 fl (80-96); MEAN PLT VOLUME 7.5 fl (7.5-11.1); MONO % 7.9 % (3.8-10.2); NEUT % 70.6 % (42.8-82.8); PLATELET COUNT 337 10^3/uL (134-434); RBC 4.11 M/mm3 (3.60-5.2); RDW 18.9 % (11.6-15.6); WHITE BLOOD COUNT 6.1 K/mm3 (4.0-10.0)
[2023-08-29 14:04] LABS: INR 1.23 (0.83-1.09); PROTHROMBIN TIME (PATIENT) 14.2 SEC (9.7-13.0)
[2023-08-29 14:07] LABS: ACTIVATED PTT 30.1 SECONDS (25.2-36.5)
[2023-08-29 14:15] LABS: POTASSIUM 4.3 mmol/L (3.5-5.1)
[2023-08-29 14:17] LABS: ALBUMIN 3.3 g/dl (3.4-5.0); CALCIUM 9.8 mg/dL (8.5-10.1)
[2023-08-29 14:18] LABS: BLOOD UREA NITROGEN 26.7 mg/dL (7-18)
[2023-08-29 14:20] LABS: CREATININE 1.7 mg/dL (0.55-1.3)
[2023-08-29 14:21] LABS: PHOSPHOROUS 3.8 mg/dL (2.5-4.9)
[2023-08-29 14:22] LABS: TOT PROT 6.7 g/dl (6.4-8.2)
[2023-08-29 14:26] LABS: N-TERMINAL BNP 26040.9 pg/ml (5-450)
[2023-08-29] MEDS ORDERED: SODIUM CHLORIDE 0.9% 500 ML INFUS.BAG IV ONE (17:21)
[2023-08-29] MEDS ORDERED: FUROSEMIDE 40 MG TABLET (FP) PO ONE (18:02)
[2023-08-29] MEDS ORDERED: ASPIRIN COATED 81 MG TABLET.EC ONE (18:31)
[2023-08-29] MEDS: amLODIPine BESYLATE 10 MG TABLET (FP) PO SCH (18:39)
[2023-08-29] MEDS: ASPIRIN 81 MG CHEWABLE TABLETS PO SCH (18:39)
[2023-08-29] MEDS ORDERED: APIXABAN 5 MG TABLET PO ONE (19:00)
[2023-08-29] MEDS ORDERED: ATORVASTATIN CA 40 MG TABLET (FP) ONE (19:46)
[2023-08-29] MEDS ORDERED: APIXABAN 5 MG TABLET ONE (19:46)
[2023-08-29] MEDS ORDERED: HEPARIN NA (PORCINE) 5,000 UNITS/ML 1ML VIAL ONE (19:47)
[2023-08-29] MEDS: HEPARIN NA (PORCINE) 5,000 UNITS/ML 1ML VIAL SQ SCH (21:08)
[2023-08-29] MEDS ORDERED: HEPARIN NA (PORCINE) 5,000 UNITS/ML 1ML VIAL SQ SCH (22:00)
[2023-08-29] MEDS ORDERED: ATORVASTATIN CA 10 MG TABLET (FP) PO SCH (22:00)
[2023-08-29] MEDS ORDERED: ATORVASTATIN CA 40 MG TABLET (FP) PO SCH (22:00)
[2023-08-30 03:29] VITALS: BMI 24.5
[2023-08-30] MEDS: HEPARIN NA (PORCINE) 5,000 UNITS/ML 1ML VIAL SQ SCH ×3 (06:53→21:47)
[2023-08-30] MEDS: ASPIRIN 81 MG CHEWABLE TABLETS PO SCH (09:54)
[2023-08-30] MEDS: amLODIPine BESYLATE 10 MG TABLET (FP) PO SCH (09:54)
[2023-08-30 10:41] LABS: HEMATOCRIT 40.1 % (32.4-45.2); HEMOGLOBIN 13.1 GM/dL (10.7-15.3); MCH 30.7 pg (25.7-33.7); MCHC 32.7 g/dl (32.0-36.0); MEAN CELL VOLUME 93.8 fl (80-96); MEAN PLT VOLUME 7.6 fl (7.5-11.1); PLATELET COUNT 384 10^3/uL (134-434); RBC 4.28 M/mm3 (3.60-5.2); RDW 17.9 % (11.6-15.6); WHITE BLOOD COUNT 8.1 K/mm3 (4.0-10.0)
[2023-08-30 10:57] LABS: POTASSIUM 3.4 mmol/L (3.5-5.1)
[2023-08-30 11:00] LABS: ALBUMIN 3.2 g/dl (3.4-5.0); CALCIUM 9.2 mg/dL (8.5-10.1)
[2023-08-30 11:01] LABS: BLOOD UREA NITROGEN 21.1 mg/dL (7-18)
[2023-08-30 11:03] LABS: CREATININE 1.5 mg/dL (0.55-1.3)
[2023-08-30 11:05] LABS: BILIRUBIN,TOTAL 1.4 mg/dL (0.2-1); TOT PROT 6.9 g/dl (6.4-8.2)
[2023-08-30 11:47] LABS: EPI CELLS 8 /uL (0-25.1); HYALINE CASTS 0 /uL (0-3.1); URINE APPEARANCE CLEAR; URINE BACTERIA 1402 /uL (0-1359); URINE BILIRUBIN NEGATIVE (NEGATIVE); URINE COLOR YELLOW; URINE GLUCOSE (UA) NEGATIVE (NEGATIVE); URINE KETONE NEGATIVE (NEGATIVE); URINE LEUK ESTERASE 1+ (NEGATIVE); URINE NITRITE NEGATIVE (NEGATIVE); URINE PROTEIN NEGATIVE (NEGATIVE); URINE RBC 4 /uL (0-23.9); URINE UROBILINOGEN 0.2 mg/dL (0.2-1.0); URINE WBC 18 /uL (0-25.8)
[2023-08-30] MEDS ORDERED: POTASSIUM CHLORIDE ORAL LIQUID 20 MEQ/15 ML PO ONE (17:37)
[2023-08-30] MEDS: ATORVASTATIN CA 40 MG TABLET (FP) PO SCH (21:47)
[2023-08-31] MEDS: HEPARIN NA (PORCINE) 5,000 UNITS/ML 1ML VIAL SQ SCH ×3 (06:38→23:06)
[2023-08-31 07:19] LABS: HEMATOCRIT 46.1 % (32.4-45.2); HEMOGLOBIN 15.1 GM/dL (10.7-15.3); MCH 30.6 pg (25.7-33.7); MCHC 32.9 g/dl (32.0-36.0); PLATELET COUNT 462 10^3/uL (134-434); RBC 4.95 M/mm3 (3.60-5.2); RDW 18.2 % (11.6-15.6); WHITE BLOOD COUNT 10.7 K/mm3 (4.0-10.0)
[2023-08-31 07:24] LABS: POTASSIUM 3.8 mmol/L (3.5-5.1)
[2023-08-31 07:41] LABS: ALBUMIN 3.6 g/dl (3.4-5.0); BLOOD UREA NITROGEN 14.9 mg/dL (7-18); MAGNESIUM 1.6 mg/dL (1.8-2.4)
[2023-08-31 07:45] LABS: CREATININE 1.3 mg/dL (0.55-1.3); PHOSPHOROUS 2.8 mg/dL (2.5-4.9)
[2023-08-31 07:47] LABS: BILIRUBIN,TOTAL 1.8 mg/dL (0.2-1); TOT PROT 7.6 g/dl (6.4-8.2)
[2023-08-31] MEDS: ASPIRIN 81 MG CHEWABLE TABLETS PO SCH (10:10)
[2023-08-31] MEDS: amLODIPine BESYLATE 10 MG TABLET (FP) PO SCH (10:10)
[2023-08-31] MEDS: MAGNESIUM OXIDE 400 MG TABLET (FP) PO SCH ×2 (10:52→23:06)
[2023-08-31] MEDS: INSULIN ASPART SLIDING SCALE (NOVOLOG) 1 VIAL SQ SCH ×2 (17:16→23:15)
[2023-08-31] MEDS: ATORVASTATIN CA 40 MG TABLET (FP) PO SCH (23:07)
[2023-09-01] MEDS: HEPARIN NA (PORCINE) 5,000 UNITS/ML 1ML VIAL SQ SCH ×3 (06:00→22:40)
[2023-09-01] MEDS: INSULIN ASPART SLIDING SCALE (NOVOLOG) 1 VIAL SQ SCH ×4 (06:31→22:45)
[2023-09-01 07:23] LABS: MAGNESIUM 1.7 mg/dL (1.8-2.4)
[2023-09-01] MEDS ORDERED: MAGNESIUM SULF 50% (8.12 MEQ/2 ML-1 GM VIAL) IVPB ONE ×2 (07:51→09:18)
[2023-09-01] MEDS: ASPIRIN 81 MG CHEWABLE TABLETS PO SCH (10:17)
[2023-09-01] MEDS: MAGNESIUM OXIDE 400 MG TABLET (FP) PO SCH ×2 (10:17→22:40)
[2023-09-01] MEDS: amLODIPine BESYLATE 10 MG TABLET (FP) PO SCH (10:17)
[2023-09-01 11:50] LABS: BASO % 0.4 % (0-2.0); HEMATOCRIT 43.6 % (32.4-45.2); HEMOGLOBIN 14.4 GM/dL (10.7-15.3); LYMPH % 15.3 % (8-40); MCH 30.9 pg (25.7-33.7); MCHC 33.1 g/dl (32.0-36.0); MEAN CELL VOLUME 93.4 fl (80-96); MEAN PLT VOLUME 7.5 fl (7.5-11.1); NEUT % 71.3 % (42.8-82.8); PLATELET COUNT 395 10^3/uL (134-434); RBC 4.66 M/mm3 (3.60-5.2); RDW 17.9 % (11.6-15.6); WHITE BLOOD COUNT 8.4 K/mm3 (4.0-10.0)
[2023-09-01 12:09] LABS: POTASSIUM 3.9 mmol/L (3.5-5.1)
[2023-09-01 12:17] LABS: CALCIUM 9.8 mg/dL (8.5-10.1)
[2023-09-01 12:18] LABS: BLOOD UREA NITROGEN 10.6 mg/dL (7-18)
[2023-09-01 12:21] LABS: CREATININE 1.1 mg/dL (0.55-1.3); PHOSPHOROUS 3.4 mg/dL (2.5-4.9)
[2023-09-01] MEDS: ATORVASTATIN CA 40 MG TABLET (FP) PO SCH (22:40)
[2023-09-02] MEDS: HEPARIN NA (PORCINE) 5,000 UNITS/ML 1ML VIAL SQ SCH ×2 (06:45→13:59)
[2023-09-02] MEDS: INSULIN ASPART SLIDING SCALE (NOVOLOG) 1 VIAL SQ SCH ×2 (06:46→12:38)
[2023-09-02 07:22] LABS: HEMATOCRIT 44.6 % (32.4-45.2); HEMOGLOBIN 14.5 GM/dL (10.7-15.3); MCH 30.9 pg (25.7-33.7); MCHC 32.5 g/dl (32.0-36.0); MEAN CELL VOLUME 94.9 fl (80-96); MEAN PLT VOLUME 7.9 fl (7.5-11.1); PLATELET COUNT 384 10^3/uL (134-434); RBC 4.71 M/mm3 (3.60-5.2); RDW 17.9 % (11.6-15.6); WHITE BLOOD COUNT 9.8 K/mm3 (4.0-10.0)
[2023-09-02 07:38] LABS: POTASSIUM 3.5 mmol/L (3.5-5.1)
[2023-09-02 07:46] LABS: CALCIUM 9.3 mg/dL (8.5-10.1)
[2023-09-02 07:47] LABS: ALBUMIN 3.4 g/dl (3.4-5.0); BLOOD UREA NITROGEN 9.9 mg/dL (7-18); MAGNESIUM 2.5 mg/dL (1.8-2.4)
[2023-09-02 07:50] LABS: PHOSPHOROUS 3.6 mg/dL (2.5-4.9)
[2023-09-02 07:51] LABS: BILIRUBIN,TOTAL 1.7 mg/dL (0.2-1); TOT PROT 7.1 g/dl (6.4-8.2)
[2023-09-02] MEDS ORDERED: SACUBITRIL/VALSARTAN 24 MG-26 MG TABLET PO SCH (10:00)
[2023-09-02] MEDS ORDERED: EMPAGLIFLOZIN (JARDIANCE) 10 MG TABLET PO SCH (10:00)
[2023-09-02] MEDS: ASPIRIN 81 MG CHEWABLE TABLETS PO SCH (11:10)
[2023-09-02 15:20] VITALS: BP 116/65; PULSE 71; RESP 15; TEMP 98.9
== END 2023-09-02 16:15 | DRG 56 ==
LOC: JER 12:18 → JERBED 17:26 → J4W 23:47
PROVIDERS: ADMIT Internal Medicine; ATTEND Internal Medicine
DX: G20.A1 Parkinson's disease without dyskinesia, without mention of fluctuations (principal); G92.8 Other toxic encephalopathy; U07.1 COVID-19; N17.9 Acute kidney failure, unspecified; I50.20 Unspecified systolic (congestive) heart failure; R44.1 Visual hallucinations; I69.30 Unspecified sequelae of cerebral infarction; E11.9 Type 2 diabetes mellitus without complications; F06.8 Other specified mental disorders due to known physiological condition; I25.10 Atherosclerotic heart disease of native coronary artery without angina pectoris; Z95.1 Presence of aortocoronary bypass graft; E78.5 Hyperlipidemia, unspecified; I10 Essential (primary) hypertension
CPT/HCPCS: 0241U-QW; 36415; 70450-TC; 71045-TC-FY; 76775-TC; 80048; 80053; 81003; 81401; 82140; 82607; 82962; 83735; 83880; 84100; 84443; 84484; 85025; 85027; 85379; 85384; 85610; 85730; 86780; 86850; 86900; 86901; 87086; 87186; 93005; 93010; 93306-TC; 93970-TC; 97116-GP; 97162-GP; 99285-25; J1644